=== PATIENT | male | born 1995 | race Caucasian/White ===

== ENCOUNTER 2017-04-05 18:20 | Emergency (ER) | payer OTHER ==
[2017-04-05] MEDS ORDERED: HYDROmorphONE/DILAUDID 1 MG/ML INJ IM ONE (19:22)
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
[2017-04-05 21:05] VITALS: PULSE 60; RESP 18; TEMP 98.2; O2SAT 97
[2017-04-05 21:09] VITALS: BP 100/60
== END 2017-04-05 21:08 | disposition home or self-care (01) ==
DX: S30.810A Abrasion of lower back and pelvis, initial encounter (principal); V19.9XXA Pedal cyclist (driver) (passenger) injured in unspecified traffic accident, initial encounter; Y92.89 Other specified places as the place of occurrence of the external cause; Y99.8 Other external cause status; Y93.55 Activity, bike riding
CPT/HCPCS: J1170